=== PATIENT | female | born 1995 | race Caucasian/White ===

== ENCOUNTER 2020-09-09 18:30 | Emergency (ER) | payer SELFPAY ==
[2020-09-09] MEDS ORDERED: diphenhydrAMINE 50 MG/ML VIAL IV ONE ×2 (18:34→18:54)
[2020-09-09] MEDS ORDERED: FAMOTIDINE 20 MG/2 ML INJ IV ONE ×2 (18:34→18:55)
[2020-09-09] MEDS ORDERED: methylPREDNISolone Sod Succinate 125 MG/2 ML INJ IV ONE (18:34)
[2020-09-09] MEDS ORDERED: methylPREDNISolone Sod Succinate 125 MG/2 ML INJ IM ONE (18:55)
--- NOTE | 2020-09-09 18:58 | Emergency Department Report ---
ED General Adult HPI - General Chief complaint: Allergic Reaction Stated complaint: ALLERGIC REACTION Time Seen by Provider: 09/09/20 18:39 Source: patient Mode of arrival: Ambulatory Limitations: No Limitations - History of Present Illness Initial comments: The patient presents to the emergency department the chief complaint of swelling of her lower lip that started just prior to arrival to the emergency department. Patient states that she took a Goody's headache powder which she is taken in the past but this time she noticed that her lips began to swell and she began to break out with hives on her chest. Patient denies any difficulty swallowing or breathing. -: Sudden Severity scale (0 -10): 0 Consistency: constant Improves with: none Worsens with: none Associated Symptoms: denies other symptoms Treatments Prior to Arrival: none - Related Data Home Medications Medication Instructions Recorded Confirmed Last Taken Vit-Fe Fumar-FA [ 1 tab PO QDAY 01/30/16 01/30/16 01/29/16 Vitamin] Previous Rx's Medication Instructions Recorded Last Taken Type HYDROcodone/APAP 5-325 [Riley 2 each PO Q6H PRN #30 tablet 02/01/16 Unknown Rx 5-325 mg TAB] Ibuprofen [Motrin 600 MG tab] 600 mg PO Q6H #30 tablet 02/01/16 Unknown Rx predniSONE [Deltasone] 20 mg PO DAILY #15 tablet 09/09/20 Unknown Rx Allergies Allergy/AdvReac Type Severity Reaction Status Date / Time No Known Allergies Allergy Verified 09/09/20 18:32 ED Review of Systems ROS: Stated complaint: ALLERGIC REACTION Other details as noted in HPI Comment: All other systems reviewed and negative Constitutional: denies: chills, fever Eyes: denies: eye pain, eye discharge, vision change ENT: denies: ear pain, throat pain Respiratory: denies: cough, shortness of breath, wheezing Cardiovascular: denies: chest pain, palpitations Endocrine: no symptoms reported Gastrointestinal: denies: abdominal pain, nausea, diarrhea Genitourinary: denies: urgency, dysuria, discharge Musculoskeletal: denies: back pain, joint swelling, arthralgia Skin: denies: rash, lesions Neurological: denies: headache, weakness, paresthesias Psychiatric: denies: anxiety, depression Hematological/Lymphatic: denies: easy bleeding, easy bruising ED Past Medical Hx - Past Medical History Hx Hypertension: No Hx Heart Attack/AMI: No Hx Congestive Heart Failure: No Hx Diabetes: No Hx Deep Vein Thrombosis: No Hx Renal Disease: No Hx Sickle Cell Disease: No Hx Seizures: No Hx Asthma: No Hx COPD: No Hx HIV: No - Social History Smoking Status: Never Smoker - Medications Home Medications: Home Medications Medication Instructions Recorded Confirmed Last Taken Type Vit-Fe Fumar-FA [ 1 tab PO QDAY 01/30/16 01/30/16 01/29/16 History Vitamin] HYDROcodone/APAP 5-325 [Riley 2 each PO Q6H PRN #30 tablet 02/01/16 Unknown Rx 5-325 mg TAB] Ibuprofen [Motrin 600 MG tab] 600 mg PO Q6H #30 tablet 02/01/16 Unknown Rx predniSONE [Deltasone] 20 mg PO DAILY #15 tablet 09/09/20 Unknown Rx ED Physical Exam - General Limitations: No Limitations General appearance: alert, in no apparent distress - Head Head exam: Present: atraumatic, normocephalic - Eye Eye exam: Present: normal appearance - ENT ENT exam: Present: mucous membranes moist, other (The patient has swelling of the lower lip. Patient has no compromise of the airway and is able to swallow and speak in full sentences. Patient is not in any acute distress.) - Neck Neck exam: Present: normal inspection - Respiratory Respiratory exam: Present: normal lung sounds bilaterally. Absent: respiratory distress - Cardiovascular Cardiovascular Exam: Present: regular rate, normal rhythm, other (Patient has urticaria to the trunk). Absent: systolic murmur, diastolic murmur, rubs, gallop - GI/Abdominal GI/Abdominal exam: Present: soft, normal bowel sounds - Extremities Exam Extremities exam: Present: normal inspection - Back Exam Back exam: Present: normal inspection - Neurological Exam Neurological exam: Present: alert, oriented X3, CN II-XII intact. Absent: motor sensory deficit - Psychiatric Psychiatric exam: Present: normal affect, normal mood - Skin Skin exam: Present: warm, dry, intact, normal color. Absent: rash ED Course Vital Signs 09/09/20 09/09/20 09/09/20 18:33 19:26 19:50 Temperature 98.3 F Pulse Rate 87 67 Respiratory 18 18 18 Rate Blood Pressure 114/82 118/68 [Right] O2 Sat by Pulse 100 100 Oximetry ED Medical Decision Making - Medical Decision Making IV Solu-Medrol, IV Pepcid, IV Benadryl given IV fluids given as well Patient reevaluated at 8:55 PM and still to maintain her airway is able to swallow without issue. Swelling of her lower lip has improved. Critical care attestation.: If time is entered above; I have spent that time in minutes in the direct care of this critically ill patient, excluding procedure time. ED Disposition Clinical Impression: Allergic reaction Disposition: - TO HOME OR SELFCARE Is pt being admited?: No Does the pt Need Aspirin: No Condition: Stable Instructions: Allergies, Adult, [id number] Additional Instructions: return if worse Referrals: PRIMARY CARE, [Primary Care Provider] - 3-5 Days JOSE MANUEL JACKSON MD [Staff Physician] - 3-5 Days Time of Disposition: 21:02
[2020-09-09 21:24] VITALS: BP 124/80
== END 2020-09-09 21:23 | disposition home or self-care (01) ==
LOC: ED 18:30
DX: T78.40XA Allergy, unspecified, initial encounter (principal); Z79.899 Other long term (current) drug therapy
CPT/HCPCS: 96374; 96375; 99282; J1200; J2930